=== PATIENT | male | born 1970 | race Caucasian/White ===

== ENCOUNTER 2020-04-16 15:48 | Emergency (ER) | payer BC ==
[~2020-04-16] VITALS: Ht 162.6 cm; Wt 74.8 kg
[2020-04-16 16:04] VITALS: BP_SYST 116
--- NOTE | 2020-04-16 16:13 | NUR ---
Patient to ER bed 04 to gown for evaluation. Side rails up.
[2020-04-16] MEDS ORDERED: KETOROLAC TROMETHAMINE 60 MG/2 ML VIAL IM ONE (16:15)
--- NOTE | 2020-04-16 16:15 | NUR ---
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 Resting in [facility] awaiting MD at this time.
--- NOTE | 2020-04-16 16:20 | NUR ---
ER at bedside examining patient.
[2020-04-16 17:35] VITALS: BP_SYST 116
--- NOTE | 2020-04-16 17:35 | NUR ---
Patient given written and verbal discharge instructions and verbalizes understanding. ER MD discussed with patient the results and treatment provided. Patient in stable condition. ID arm band removed. Rx of Motrin and [place] given. Patient educated on pain management and to follow up with PMD. Pain Scale 0/10. Opportunity for questions provided and answered. Medication side effect fact sheet provided.
== END 2020-04-16 17:30 | disposition home or self-care (01) ==
LOC: SED 15:48
DX: S43.402A Unspecified sprain of left shoulder joint, initial encounter (principal); X58.XXXA Exposure to other specified factors, initial encounter; Y93.89 Activity, other specified; Y92.89 Other specified places as the place of occurrence of the external cause; Y99.8 Other external cause status
CPT/HCPCS: 73030; 99283; J1885